=== PATIENT | female | born 1960 | race Caucasian/White ===

== ENCOUNTER 2019-05-14 08:55 | Outpatient (CLI) | payer OTHER ==
[2019-05-14 15:18] LABS: #Basophils 0.1 thou/uL (0.0-0.2); #Eosinphils 0.2 thou/uL (0.0-0.7); #Lymphocytes 2.7 thou/uL (1.20-3.40); #Monocytes 0.6 thou/uL (0.11-0.59); #Neutrophils 3.9 thou/uL (1.40-6.50); %Basophils 0.7 % (0.0-1.0); %Eosinophils 3.1 % (0.0-10.0); %Monocytes 8.2 % (0.0-10.0); Hemoglobin 13.1 g/dL (12.0-16.0); Mean Corpuscular HGB CONC 33.8 g/dL (32.0-36.0); Mean Corpuscular Hemoglobin 29.1 pg (27.0-31.0); Mean Corpuscular Volume 86.2 fL (78.0-98.0); Mean Platelet Volume 9.4 fL (7.4-10.4); Platelet Count 239 thou/uL (130-400); RBC Distribution Width 14.1 % (11.5-14.5); Red Blood Cell (RBC) Count 4.49 mill/uL (4.20-5.40); White Blood Cell (WBC) Count 7.4 thou/uL (4.8-10.8)
[2019-05-14 15:26] LABS: INR-International Normal Ratio 0.9; Prothrombin Time 12.5 SEC (12.0-14.7)
[2019-05-14 15:38] LABS: Bacteria/HPF None Seen HPF (None Seen); Bilirubin Negative (Negative); Blood, Urine Negative (Negative); Clarity Clear (Clear); Glucose, Urine (Dipstick) Normal (Negative); Leukocyte 75 Leu/uL (Negative); Nitrite Negative (Negative); Protein, Urine (Dipstick) Negative (Neg-Trace); RBC/HPF 0-3 HPF (0-3); Squamous Epithelial 0-3 HPF (0-3); Urobilinogen Normal mg/dL (Less than 2); WBC/HPF 0-3 HPF (0-3)
[2019-05-14 15:40] LABS: Anion Gap 14 mmol/L (10-20); BUN (Urea Nitrogen) 21 mg/dL (9.8-20.1); Calc. Creatinine Clearance 0 mL/min (70-130); Calcium 9.6 mg/dL (7.8-10.44); Carbon Dioxide 25 mmol/L (22-29); Chloride 101 mmol/L (98-107); Estimated GFR-MDRD 54; Glucose 76 mg/dL (70-105); Potassium 4.2 mmol/L (3.5-5.1); Sodium 136 mmol/L (136-145)
== END 2019-05-14 08:56 | disposition home or self-care (01) ==
LOC: LABBT 08:55
PROVIDERS: ATTEND Orthopaedic Surgery
DX: Z01.818 Encounter for other preprocedural examination (principal); M17.11 Unilateral primary osteoarthritis, right knee
CPT/HCPCS: 80048; 81001; 85025; 85610; 87081; 93005; 93010

== ENCOUNTER 2019-05-14 12:30 | Inpatient (IN) | payer OTHER ==
[2019-05-14 12:54] VITALS: BMI 47.6
[2019-05-25] MEDS ORDERED: Sodium Chloride 0.9% 100 ML ONE (06:02)
[2019-05-25] MEDS ORDERED: Tranexamic Acid 1,000 MG/10 ML VIAL ONE (06:02)
[2019-05-25] MEDS ORDERED: Vancomycin 1.5 GRAM/300 ML BAG 1.5 GM/300 ML BAG ONE (06:02)
[2019-05-25] MEDS ORDERED: Bupivacaine PF 0.5% 30 ML VIAL ONE (06:38)
[2019-05-25] MEDS ORDERED: HYDROcodone/Acetaminophen 10/325 mg Tablet PO PRN ×4 (07:18→07:21)
[2019-05-25] MEDS ORDERED: Ondansetron PF 4 MG/2 ML Vial IVP PRN ×2 (07:18→07:21)
[2019-05-25] MEDS ORDERED: traMADol HCl 50 MG TAB PO PRN ×2 (07:18→07:21)
[2019-05-25] MEDS ORDERED: Promethazine HCl 25 MG/ML VIAL IM PRN ×3 (07:18→07:33)
[2019-05-25] MEDS ORDERED: Zolpidem Tartrate 5 MG TAB PO PRN ×2 (07:18→07:21)
[2019-05-25] MEDS ORDERED: Fentanyl 100 MCG/2 ML VIAL SLOW IVP PRN ×2 (07:19→07:21)
[2019-05-25] MEDS ORDERED: Acetaminophen 325 MG TAB PO PRN ×2 (07:19→07:21)
[2019-05-25] MEDS ORDERED: diphenhydrAMINE 25 MG CAP PO PRN (07:21)
[2019-05-25] MEDS ORDERED: guaiFENesin ER 600 MG TAB PO PRN (07:23)
[2019-05-25] MEDS ORDERED: Ondansetron HCl/PF 4 MG/2 ML Vial IVP PRN (07:33)
[2019-05-25] MEDS ORDERED: Promethazine HCl 25 MG/ML VIAL SLOW IVP PRN (07:33)
--- NOTE | 2019-05-25 09:39 | OP ---
DATE OF PROCEDURE: 05/25/2019 PREOPERATIVE DIAGNOSIS: Right knee rheumatoid arthritis. POSTOPERATIVE DIAGNOSIS: Right knee rheumatoid arthritis. PROCEDURE PERFORMED: Right total knee replacement using [employer]ent[employer] pinless navigation. FASHION ARTIST: Raffi Palm PA-C BLOOD LOSS: Minimal. COMPLICATIONS: None. ANESTHESIA: The patient did have a general anesthetic as well as a local block to the right leg. IMPLANTS: To the right knee, [place] Triathlon total knee system. The femur was a size 3 cruciate retaining femur. We used a size 2 primary tibial baseplate. We used a 2 x 9 mm CS X3 plastic on the tibia and we used a 28 x 7 X3 patella. DISPOSITION: She went to recovery room in stable condition. INDICATIONS: A 58-year-old female, who is on immunomodulation therapy for rheumatoid arthritis, who at this time wished to have her right knee replaced. PROCEDURE IN DETAIL: After all appropriate consent forms were explained and signed, the patient was taken back to the operating room and at this time was given general anesthetic. Once the level of anesthesia was appropriate, a well-padded tourniquet was placed on the right leg, and the leg was then prepped and draped in standard surgical fashion. The limb was exsanguinated and tourniquet taken up to 300 mmHg. Midline incision was made with a 10 blade down through the skin and subcutaneous tissue. Bovie electrocautery was used to coagulate any brisk venous bleeding. A new blade was used to make a medial parapatellar arthrotomy. Small subperiosteal release was performed medially and excess fat pad was removed. The knee was flexed up to gain access to the femur. The femur was navigated and distal femoral resection was made. Epicondylar access was used to align our sizing jig and this was pinned in place. We sized our femur to be a size 3 cruciate retaining femur. 4:1 cutting block was applied and pinned. Anterior and posterior chamfer cuts were then made. We navigated out our proximal tibia and made our proximal tibial resection. Spreaders were used to remove any posterior osteophytes off the back of the femur as well as remaining meniscal tissue. A long alignment esequiel was then used to achieve correct rotation of our tibial baseplate and a size 2 primary tibial baseplate was chosen. This was pinned in place. We trialed the polyethylene and a 2 x 9 mm CS X3 plastic polyethylene gave us full extension and good stability throughout range of motion. Two towel clips and a saw were used to cut our patella. Three lug nuts were drilled and 28 x 7 X3 patella was trialed which sat nicely in the trochlear groove. We then drilled our femur and punched our tibia. All components were removed. The knee was thoroughly irrigated and dried. Cement was mixed into the cement gun on the back table. Components were then placed. The knee was held out in full extension until the cement had dried. All excess bone cement was removed. Multiple #2 Vicryl stitches as well as a Quill were used to close our extensor mechanism. 0 Quill followed by a running Monoderm was then used to close the skin. Surgicel glue was then used on the skin. Once this had dried, soft tissue dressing was applied to the limb, tourniquet was let down, and the toes pinked up nicely. The patient was then awakened and taken to the recovery room in stable condition. All counts were correct at the end of the case. The patient did receive preoperative IV antibiotics. The patient was infiltrated with Marcaine for postop pain relief. Job ID: [id number]
[2019-05-25] MEDS ORDERED: Ketorolac Tromethamine 30 MG/ML VIAL IVP SCH (12:00)
[2019-05-25] MEDS: Aspirin 81 mg Enteric Coated Tablet PO SCH ×2 (14:07→21:04)
[2019-05-25] MEDS: Ketorolac Tromethamine 30 MG/ML VIAL IVP SCH ×2 (14:12→21:05)
[2019-05-25] MEDS: CEFAZOLIN 2 GM in Premix Bag 1 BAG IVPB SCH ×2 (14:13→21:17)
[2019-05-25] MEDS: Mupirocin 2% Ointment 22 GM Tube TOP SCH ×3 (14:14→21:06)
[2019-05-25] MEDS: Estradiol 1 MG TAB PO SCH (14:15)
[2019-05-25] MEDS: Multivitamin W/ Minerals 1 TAB PO SCH (14:15)
[2019-05-25] MEDS: Losartan/Hydrochlorothiazide 100 mg/25 mg Tablet PO SCH (14:15)
[2019-05-25] MEDS: Ferrous Gluconate 324 MG TAB PO SCH ×2 (14:15→21:04)
[2019-05-25] MEDS: Cyanocobalamin (Vitamin B-12) 1,000 MCG TAB PO SCH (14:16)
[2019-05-25] MEDS: CeleCOXIB 100 MG CAP PO SCH ×2 (14:16→21:04)
[2019-05-25] MEDS ORDERED: Bupivacaine HCl 0.5%/Epinephrine 1:200,000/PF 30 ml Vial ONE (14:34)
[2019-05-25] MEDS ORDERED: ePHEDrine/0.9% NaCl/PF SYRINGE 50 mg/10 ml ONE (14:34)
[2019-05-25] MEDS ORDERED: PROPOFOL 200 MG/20 ML VIAL ONE (14:34)
[2019-05-25] MEDS ORDERED: Ropivacaine 0.2% HCl/PF (40 MG/20 ML VIAL) ONE (14:34)
[2019-05-25] MEDS ORDERED: Dexamethasone 20 MG/5 ML VIAL ONE (14:34)
[2019-05-25] MEDS ORDERED: Lidocaine 1% PF 5 ML VIAL ONE (14:34)
[2019-05-25] MEDS ORDERED: Ketorolac Tromethamine 30 MG/ML VIAL ONE (14:34)
[2019-05-25] MEDS ORDERED: Ondansetron PF 4 MG/2 ML Vial ONE (14:34)
--- NOTE | 2019-05-25 15:03 | CON ---
DATE OF CONSULTATION: PRIMARY CARE PROVIDER: Dr. José Miguel Simon in [place], [place]. CHIEF COMPLAINT: Management of medical comorbidities. HISTORY OF PRESENT ILLNESS: Ms. Galvin is a pleasant 58-year-old lady, who was seen at [facility] on May 25, 2019. She underwent right total knee replacement earlier today. Hospitalist Service was consulted for management of medical comorbidities. She denies any chest pain or shortness of breath. She reports slight lower extremity numbness. She denies any nausea or vomiting. She denies any abdominal pain. REVIEW OF SYSTEMS: All systems were reviewed and found to be negative except for the pertinent positives mentioned above. PAST MEDICAL HISTORY: Obstructive sleep apnea syndrome, on CPAP therapy; arthritis; gastroesophageal reflux disease. PAST SURGICAL HISTORY: Hysterectomy, tubal ligation, meniscal tear repair, laparoscopic cholecystectomy. PSYCHIATRIC HISTORY: Depression and anxiety. FAMILY HISTORY: Coronary artery disease in grandparents. SOCIAL HISTORY: The patient denies tobacco use, alcohol use, or recreational drug use. ALLERGIES: CODEINE AND EPINEPHRINE. CURRENT MEDICATIONS: 1. Bactrim DS one tablet 2 times a day for abdominal wound infection. 2. Abatacept 125 mg subcutaneously every week. 3. Alprazolam 0.25 mg daily as needed. 4. Celebrex 100 mg 2 times a day. 5. Vitamin D3 of 5000 units daily. 6. Vitamin B12 500 mcg daily. 7. Escitalopram 20 mg at bedtime. 8. Estradiol 1 mg daily. 9. Mucinex 600 mg 2 times a day as needed. 10. Olmesartan/hydrochlorothiazide 40/25 mg daily. 11. Omeprazole 10 mg daily. 12. Turmeric 500 mg 2 times a day. PHYSICAL EXAMINATION: GENERAL: On examination, Ms. Galvin is awake and alert, not in acute distress. VITAL SIGNS: Blood pressure is 134/68, pulse 93, respiratory rate 16, and oxygen saturation 95% on room air. She is afebrile. She is morbidly obese with a BMI of 47.7. EYES: No scleral icterus, no conjunctival pallor. ENT: Moist mucosal membranes. No oropharyngeal erythema or exudates. NECK: Supple, nontender. Trachea is midline. RESPIRATORY: Accessory muscles of breathing are not active. Chest wall movements are symmetric bilaterally. LUNGS: Clear to auscultation without wheezes, rhonchi, or crepitations. CARDIOVASCULAR: S1 and S2 are heard, regular. Peripheral pulses palpable. ABDOMEN: Soft, nontender, bowel sounds heard. NEUROLOGIC: Cranial nerves 2 through 12 are intact. MUSCULOSKELETAL: Status post right knee surgery. SKIN: No rashes. LYMPHATIC: No cervical lymphadenopathy. PSYCHIATRIC: Normal mood, normal affect, the patient is oriented to person, place, and time. LABORATORY DATA: Ms. Galvin' labs and investigations were reviewed. On May 14, 2019, she had an unremarkable CBC and unremarkable Chem-7. ASSESSMENT AND PLAN: Ms. Galvin is a pleasant 58-year-old lady, who was seen at [facility] on May 25, 2019. Hospitalist Service has been consulted for management of medical comorbidities. Her problem list includes: 1. Hypertension: Continue olmesartan/hydrochlorothiazide, monitor vital signs and titrate antihypertensives as needed. 2. Obstructive sleep apnea syndrome: The patient to use CPAP while asleep. 3. Gastroesophageal reflux disease: Continue PPI. 4. Depression: Mild, stable, continue escitalopram. 5. Morbid obesity: Management as outpatient. Many thanks for allowing me to participate in your patient's care. Please feel free to contact me with any questions or concerns. LEVEL OF RISK: Moderate. LEVEL OF COMPLEXITY: Moderate. Job ID: [id number]
[2019-05-25] MEDS: Sodium Chloride 0.9% 1,000 ML IV SCH ×2 (17:39→21:15)
[2019-05-25] MEDS: Senokot S 8.6-50 MG TAB PO SCH ×2 (17:40→21:04)
[2019-05-25] MEDS ORDERED: Vancomycin HCl 1.5 GM in Sodium Chloride 0.9% 250 ML 300 ML IVPB SCH (18:00)
[2019-05-25] MEDS ORDERED: Vancomycin 1.5 GRAM/300 ML BAG 1.5 GM in Premix Bag 1 BAG IVPB SCH (18:00)
[2019-05-25] MEDS: Escitalopram Oxalate 20 mg Tablet PO SCH (21:04)
[2019-05-25] MEDS: Sulfameth/Trimethoprim DS 800-160mg TAB PO SCH (21:04)
[2019-05-26 05:10] LABS: Hemoglobin 10.9 g/dL (12.0-16.0); Mean Corpuscular HGB CONC 33.6 g/dL (32.0-36.0); Mean Corpuscular Hemoglobin 29.7 pg (27.0-31.0); Mean Corpuscular Volume 88.4 fL (78.0-98.0); Mean Platelet Volume 9.5 fL (7.4-10.4); Platelet Count 187 thou/uL (130-400); RBC Distribution Width 14.1 % (11.5-14.5); Red Blood Cell (RBC) Count 3.69 mill/uL (4.20-5.40)
[2019-05-26] MEDS: Ketorolac Tromethamine 30 MG/ML VIAL IVP SCH ×3 (05:59→22:00)
[2019-05-26] MEDS: Sulfameth/Trimethoprim DS 800-160mg TAB PO SCH ×2 (08:38→21:55)
[2019-05-26] MEDS: Senokot S 8.6-50 MG TAB PO SCH ×2 (08:38→22:00)
[2019-05-26] MEDS: Aspirin 81 mg Enteric Coated Tablet PO SCH ×2 (08:38→21:54)
[2019-05-26] MEDS: Losartan/Hydrochlorothiazide 100 mg/25 mg Tablet PO SCH (08:39)
[2019-05-26] MEDS: Estradiol 1 MG TAB PO SCH (08:53)
[2019-05-26] MEDS: CeleCOXIB 100 MG CAP PO SCH ×2 (08:59→21:55)
[2019-05-26] MEDS: Cyanocobalamin (Vitamin B-12) 1,000 MCG TAB PO SCH (09:00)
[2019-05-26] MEDS: Multivitamin W/ Minerals 1 TAB PO SCH (09:00)
[2019-05-26] MEDS: Ferrous Gluconate 324 MG TAB PO SCH ×2 (09:00→21:54)
[2019-05-26] MEDS: Mupirocin 2% Ointment 22 GM Tube TOP SCH ×3 (09:00→21:56)
[2019-05-26] MEDS: Ropivacaine HCl/PF 250 ML in Premix Bag 1 BAG NERVE BLCK SCH (09:32)
[2019-05-26] MEDS: traMADol HCl 50 MG TAB PO PRN (14:23)
--- NOTE | 2019-05-26 14:38 | PRG ---
DATE OF SERVICE: 05/26/2019 SUBJECTIVE: Shelly is a 58-year-old female, postop day 1 from a right total knee arthroplasty. Apparently, according to nursing staff, the patient got up this afternoon, went to the bathroom and unfortunately fell landing on her right knee. Pain was tolerable. Her block still working relatively well, but we were called to the bedside for evaluation. OBJECTIVE: VITAL SIGNS: Temperature 97.9, pulse 65, respiratory rate 18, O2 saturation 97% on room air, blood pressure 108/72. GENERAL: She is alert and oriented to person, place, time, situation, responsive, appropriate with examiner. Grossly nonfocal. Her incision after removal of dressing demonstrates some small separation at the superior aspect of the incision. There are two areas of a little bit of concern. I can see some blood clot down in the diastasis of the wound. Little active bleeding is noted at the inferior aspect of the wound, but this essentially is not a completely dehisced wound. Her quad tendon appears to be intact as she can straight leg raise. She is neurovascularly intact with dorsiflexion, inversion, eversion. No erythema. No strike through was noted prior to removal of the dressing. IMPRESSION: 1. A 58-year-old female postop day 1 right total knee arthroplasty. 2. Fall with very small skin dehiscence, superior aspect of wound. PLAN: I will maintain her n.p.o. after midnight. For now, I will place her in a long-leg immobilizer and a compression dressing over the knee and we will put a hold on therapy. We will re-evaluate the patient tomorrow morning. Job ID: [id number]
--- NOTE | 2019-05-26 15:06 | PDOC.HOSPP ---
- Subjective Encounter Date: 05/26/19 Encounter Time: 14:00 Subjective: Pt seen for followup re; hypertension. Fell earlier. - Objective Vital Signs & Weight: Vital Signs (12 hours) Temp Pulse Resp BP Pulse Ox 05/26/19 12:17 97.9 F 65 18 108/73 97 05/26/19 10:20 98.0 F 86 20 155/61 H 93 L 05/26/19 08:00 98.0 F 71 16 145/82 H 95 05/26/19 04:00 98.3 F 69 18 115/69 96 Weight Admit Weight 244 lb Weight 244 lb I&O: 05/25/19 05/26/19 05/27/19 06:59 06:59 06:59 Intake Total 3760 Output Total 1450 Balance 2310 Result Diagrams: 05/26/19 04:30 Additional Labs: Labs and MARs reviewed by [place] Hospitalist ROS - Review of Systems Cardiovascular: denies: chest pain, palpitations, orthopnea, paroxysmal noc. dyspnea, edema, light headedness Gastrointestinal: denies: nausea, vomiting, abdominal pain, diarrhea, constipation, melena, hematochezia - Medication Medications: Active Medications Generic Name Dose Route Start Last Admin Trade Name Freq PRN Reason Stop Dose Admin Aspirin 81 mg 05/25/19 09:00 05/26/19 08:38 Ecotrin PO 81 mg BID VINAY Administration Celecoxib 100 mg 05/25/19 09:00 05/26/19 08:59 Celebrex PO Not Given BID [facility] Cholecalciferol 5,000 units 05/25/19 09:00 05/26/19 08:59 Vitamin D3 PO Not Given DAILY [facility] Cyanocobalamin 500 mcg 05/25/19 09:00 05/26/19 09:00 Vitamin B-12 PO Not Given DAILY [facility] Escitalopram Oxalate 20 mg 05/25/19 21:00 05/25/19 21:04 Lexapro PO 20 mg HS VINYA Administration Estradiol 1 mg 05/25/19 09:00 05/26/19 08:53 Estrace PO 1 mg DAILY [facility] Administration Ferrous Gluconate 324 mg 05/25/19 09:00 05/26/19 09:00 Fergon PO Not Given BID [facility] HCTZ/Losartan Potassium 1 tab 05/25/19 09:00 05/26/19 08:39 Hyzaar 100/25 PO 1 tab DAILY VINAY Administration Ropivacaine 250 ml/ Device 250 mls @ 10 mls/hr 05/25/19 07:18 05/26/19 09:32 NERVE BLCK 05/28/19 07:17 250 mls INF VINAY Administration Sodium Chloride 1,000 mls @ 100 mls/hr 05/25/19 07:30 05/25/19 21:15 Normal Saline 0.9% IV 1,000 mls .Q10H VINAY Administration Iron/Minerals/Multivitamins 1 tab 05/25/19 09:00 05/26/19 09:00 Theragran M PO Not Given DAILY VINAY Ketorolac Tromethamine 15 mg 05/25/19 14:00 05/26/19 14:24 Toradol IVP 05/27/19 14:01 Not Given Q8HR VINAY Mupirocin 0 gm 05/25/19 09:00 05/26/19 09:00 Bactroban 2% Ointment TOP 1 appful TID VINAY Administration Pantoprazole Sodium 40 mg 05/25/19 09:00 05/26/19 08:38 Protonix PO 40 mg DAILY VINAY Administration Senna/Docusate Sodium 2 tab 05/25/19 09:00 05/26/19 08:38 Senokot S PO 2 tab BID VINAY Administration Tramadol HCl 50 mg 05/25/19 07:18 05/26/19 14:23 Ultram PO 50 mg Q6H PRN Administration Mild Pain (1-3) Trimethoprim/Sulfamethoxazole 1 tab 05/25/19 21:00 05/26/19 08:38 Bactrim Ds PO 1 tab BID VINAY Administration - Exam General - other findings: Morbid obesity Eye: anicteric sclera ENT: moist mucosa Neck: supple Heart: RRR Respiratory: CTAB Gastrointestinal: soft, non-tender Extremities: no cyanosis Psychiatric: normal affect, normal behavior Hosp A/P (1) Hypertension Code(s): I10 - ESSENTIAL (PRIMARY) HYPERTENSION Status: Acute (2) MANINDER (obstructive sleep apnea) Code(s): G47.33 - OBSTRUCTIVE SLEEP APNEA (ADULT) (PEDIATRIC) Status: Chronic (3) Depression Code(s): F32.9 - MAJOR DEPRESSIVE DISORDER, SINGLE EPISODE, UNSPECIFIED Status : Chronic (4) GERD (gastroesophageal reflux disease) Code(s): K21.9 - GASTRO-ESOPHAGEAL REFLUX DISEASE WITHOUT ESOPHAGITIS Status: Chronic (5) Morbid obesity with BMI of 45.0-49.9, adult Code(s): E66.01 - MORBID (SEVERE) OBESITY DUE TO EXCESS CALORIES; Z68.42 - BODY MASS INDEX (BMI) 45.0-49.9, ADULT Status: Chronic (6) Fall Code(s): W19.XXXA - UNSPECIFIED FALL, INITIAL ENCOUNTER Status: Acute - Plan HTN controlled. Pt using CPAP while asleep. Depression mild, stable.
[2019-05-26] MEDS: Escitalopram Oxalate 20 mg Tablet PO SCH (21:55)
[2019-05-26] MEDS: ALPRAZolam 0.25 MG TAB PO PRN (21:55)
[2019-05-27 04:41] LABS: Hemoglobin 10.9 g/dL (12.0-16.0); Mean Corpuscular HGB CONC 34.1 g/dL (32.0-36.0); Mean Corpuscular Hemoglobin 29.9 pg (27.0-31.0); Mean Corpuscular Volume 87.5 fL (78.0-98.0); Mean Platelet Volume 9.6 fL (7.4-10.4); Platelet Count 180 thou/uL (130-400); RBC Distribution Width 14.3 % (11.5-14.5); Red Blood Cell (RBC) Count 3.64 mill/uL (4.20-5.40)
[2019-05-27] MEDS: Ketorolac Tromethamine 30 MG/ML VIAL IVP SCH ×2 (06:06→11:50)
[2019-05-27] MEDS: Sodium Chloride 0.9% 1,000 ML IV SCH ×3 (07:29→16:41)
[2019-05-27] MEDS: Aspirin 81 mg Enteric Coated Tablet PO SCH ×2 (08:56→21:03)
[2019-05-27] MEDS: Cyanocobalamin (Vitamin B-12) 1,000 MCG TAB PO SCH (08:56)
[2019-05-27] MEDS: CeleCOXIB 100 MG CAP PO SCH ×2 (08:56→21:03)
[2019-05-27] MEDS: Ferrous Gluconate 324 MG TAB PO SCH ×2 (08:56→21:03)
[2019-05-27] MEDS: Senokot S 8.6-50 MG TAB PO SCH ×2 (08:57→21:04)
[2019-05-27] MEDS: Estradiol 1 MG TAB PO SCH (08:57)
[2019-05-27] MEDS: Sulfameth/Trimethoprim DS 800-160mg TAB PO SCH ×2 (08:57→21:04)
[2019-05-27] MEDS: Multivitamin W/ Minerals 1 TAB PO SCH (08:57)
[2019-05-27] MEDS: Losartan/Hydrochlorothiazide 100 mg/25 mg Tablet PO SCH (08:57)
[2019-05-27] MEDS: Mupirocin 2% Ointment 22 GM Tube TOP SCH ×3 (08:58→21:04)
[2019-05-27] MEDS ORDERED: CEFAZOLIN 1 GM in Sodium Chloride 0.9% 100 ML IVPB SCH (09:00)
[2019-05-27] MEDS: ALPRAZolam 0.25 MG TAB PO PRN (09:09)
[2019-05-27] MEDS: ceFAZolin 1 GM/D5W 1 GM in Premix Bag 1 BAG IVPB SCH ×2 (09:42→16:56)
[2019-05-27] MEDS: Ropivacaine HCl/PF 250 ML in Premix Bag 1 BAG NERVE BLCK SCH (11:46)
[2019-05-27] MEDS ORDERED: ceFAZolin 1 GM/D5W 1 GM in Premix Bag 1 BAG IVPB SCH (17:00)
[2019-05-27] MEDS: Escitalopram Oxalate 20 mg Tablet PO SCH (21:03)
[2019-05-28] MEDS: ceFAZolin 1 GM/D5W 1 GM in Premix Bag 1 BAG IVPB SCH ×3 (03:17→17:00)
[2019-05-28] MEDS: Sodium Chloride 0.9% 1,000 ML IV SCH ×3 (05:07→20:08)
[2019-05-28 05:11] LABS: Hemoglobin 11.2 g/dL (12.0-16.0); Mean Corpuscular HGB CONC 33.5 g/dL (32.0-36.0); Mean Corpuscular Hemoglobin 29.1 pg (27.0-31.0); Mean Corpuscular Volume 86.8 fL (78.0-98.0); Mean Platelet Volume 8.9 fL (7.4-10.4); Platelet Count 195 thou/uL (130-400); RBC Distribution Width 14.3 % (11.5-14.5); Red Blood Cell (RBC) Count 3.86 mill/uL (4.20-5.40); White Blood Cell (WBC) Count 8.9 thou/uL (4.8-10.8)
[2019-05-28] MEDS: Sulfameth/Trimethoprim DS 800-160mg TAB PO SCH ×2 (08:35→20:09)
[2019-05-28] MEDS: Losartan/Hydrochlorothiazide 100 mg/25 mg Tablet PO SCH (08:35)
[2019-05-28] MEDS: Estradiol 1 MG TAB PO SCH (08:35)
[2019-05-28] MEDS: Ferrous Gluconate 324 MG TAB PO SCH ×2 (08:35→20:09)
[2019-05-28] MEDS: Multivitamin W/ Minerals 1 TAB PO SCH (08:36)
[2019-05-28] MEDS: CeleCOXIB 100 MG CAP PO SCH ×2 (08:36→20:09)
[2019-05-28] MEDS: Aspirin 81 mg Enteric Coated Tablet PO SCH ×2 (08:36→20:09)
[2019-05-28] MEDS: Cyanocobalamin (Vitamin B-12) 1,000 MCG TAB PO SCH (08:36)
[2019-05-28] MEDS: Senokot S 8.6-50 MG TAB PO SCH ×2 (08:37→20:07)
[2019-05-28] MEDS: Mupirocin 2% Ointment 22 GM Tube TOP SCH ×3 (08:38→20:10)
[2019-05-28] MEDS: ALPRAZolam 0.25 MG TAB PO PRN (08:55)
[2019-05-28] MEDS: traMADol HCl 50 MG TAB PO PRN (18:31)
[2019-05-28] MEDS: Escitalopram Oxalate 20 mg Tablet PO SCH (20:09)
[2019-05-29] MEDS: ceFAZolin 1 GM/D5W 1 GM in Premix Bag 1 BAG IVPB SCH (03:31)
[2019-05-29 05:28] LABS: Hemoglobin 11.5 g/dL (12.0-16.0); Mean Corpuscular HGB CONC 34.4 g/dL (32.0-36.0); Mean Corpuscular Hemoglobin 30.2 pg (27.0-31.0); Mean Corpuscular Volume 87.8 fL (78.0-98.0); Mean Platelet Volume 9.2 fL (7.4-10.4); Platelet Count 264 thou/uL (130-400); RBC Distribution Width 14.1 % (11.5-14.5); Red Blood Cell (RBC) Count 3.79 mill/uL (4.20-5.40); White Blood Cell (WBC) Count 9.6 thou/uL (4.8-10.8)
[2019-05-29] MEDS: traMADol HCl 50 MG TAB PO PRN (06:50)
[2019-05-29] MEDS: Senokot S 8.6-50 MG TAB PO SCH ×2 (07:37→07:43)
[2019-05-29] MEDS: Estradiol 1 MG TAB PO SCH (07:38)
[2019-05-29] MEDS: Losartan/Hydrochlorothiazide 100 mg/25 mg Tablet PO SCH (07:38)
[2019-05-29] MEDS: Ferrous Gluconate 324 MG TAB PO SCH (07:38)
[2019-05-29] MEDS: CeleCOXIB 100 MG CAP PO SCH (07:38)
[2019-05-29] MEDS: Multivitamin W/ Minerals 1 TAB PO SCH (07:38)
[2019-05-29] MEDS: Aspirin 81 mg Enteric Coated Tablet PO SCH (07:38)
[2019-05-29] MEDS: Cyanocobalamin (Vitamin B-12) 1,000 MCG TAB PO SCH (07:39)
[2019-05-29] MEDS: Sulfameth/Trimethoprim DS 800-160mg TAB PO SCH (07:39)
[2019-05-29 07:46] VITALS: BP 146/76; TEMP 98.1
== END 2019-05-29 09:58 | disposition home or self-care (01) | DRG 470 ==
LOC: SJJU 05-25 05:47 → EDSTATUS 05-25 12:30
PROVIDERS: ADMIT Orthopaedic Surgery; ATTEND Orthopaedic Surgery
PROC: 0SRC0J9 Replacement of Right Knee Joint with Synthetic Substitute, Cemented, Open Approach (ICD-10-PCS; principal; 2019-05-25)
PROC: 5A09357 Assistance with Respiratory Ventilation, Less than 24 Consecutive Hours, Continuous Positive Airway Pressure (ICD-10-PCS; 2019-05-28)
DX: M06.861 Other specified rheumatoid arthritis, right knee (principal); Z68.42 Body mass index [BMI] 45.0-49.9, adult; T81.31XA Disruption of external operation (surgical) wound, not elsewhere classified, initial encounter; G47.33 Obstructive sleep apnea (adult) (pediatric); K21.9 Gastro-esophageal reflux disease without esophagitis; F41.9 Anxiety disorder, unspecified; F32.9 Major depressive disorder, single episode, unspecified; E66.01 Morbid (severe) obesity due to excess calories; Y83.8 Other surgical procedures as the cause of abnormal reaction of the patient, or of later complication, without mention of misadventure at the time of the procedure; Z90.49 Acquired absence of other specified parts of digestive tract; Z90.710 Acquired absence of both cervix and uterus; Z88.5 Allergy status to narcotic agent; Z88.8 Allergy status to other drugs, medicaments and biological substances; Z79.899 Other long term (current) drug therapy
CPT/HCPCS: 36415; 85027; C1713; C1776; J0670; J0690; J1100; J1885; J2001; J2405; J2704; J2795; J3490; S0020

== ENCOUNTER 2020-03-16 06:46 | Outpatient (CLI) | payer OTHER ==
[2020-03-16 14:03] LABS: #Eosinphils 0.2 10x3/uL (0.0-0.5); #Monocytes 0.6 10x3/uL (0.0-1.1); #Neutrophils 1.9 10x3/uL (1.5-8.4); %Basophils 0.7 % (0.0-2.0); %Eosinophils 3.1 % (0.0-6.0); %Lymphocytes 49.5 % (18.0-47.0); %Monocytes 11.2 % (0.0-10.0); %Neutrophils 35.3 % (40.0-75.0); Hemoglobin 13.5 g/dL (12.0-16.0); Mean Corpuscular HGB CONC 33.5 G/DL (32.0-36.0); Mean Corpuscular Volume 86.5 fl (80.0-100.0); Mean Platelet Volume 11.2 fl (7.4-10.4); Platelet Count 194 10x3/uL (130-400); RBC Distribution Width 17.1 % (11.5-14.5); Red Blood Cell (RBC) Count 4.66 10x6/uL (3.90-5.20); White Blood Cell (WBC) Count 5.4 10x3/uL (4.5-11.0)
[2020-03-16 14:28] LABS: Prothrombin Time 10.8 sec (9.5-12.1)
[2020-03-16 14:33] LABS: Anion Gap 14 mmol/L (10-20); BUN (Urea Nitrogen) 20 mg/dL (9.8-20.1); Calc. Creatinine Clearance 0 mL/min (70-130); Calcium 9.4 mg/dL (7.8-10.44); Carbon Dioxide 27 mmol/L (22-29); Chloride 101 mmol/L (98-107); Estimated GFR-MDRD 53; Glucose 121 mg/dL (70-105); Potassium 4.4 mmol/L (3.5-5.1); Sodium 138 mmol/L (136-145)
[2020-03-16 15:04] LABS: Bilirubin Neg (Negative); Blood, Urine Negative (Negative); Clarity Clear (Clear); Glucose, Urine (Dipstick) Normal (Negative); Ketone, Urine Negative (Negative); Leukocyte 25 (Negative); Nitrite Negative (Negative); Protein, Urine (Dipstick) Negative (Neg-Trace)
[2020-03-16 15:26] LABS: Bacteria/HPF Rare-Few HPF (None Seen); RBC/HPF None Seen HPF (0-3); Squamous Epithelial 0-3 HPF (0-3); WBC/HPF 0-3 HPF (0-3)
[2020-03-17 14:43] LABS: SARS-CoV-2 MS2 Positive; SARS-CoV-2 N Gene Negative; SARS-CoV-2 S Gene Negative; SARS-CoV-2 by NAA Not Detected (NotDetected); SARS-CoV-2 orf1ab Negative
== END 2020-03-16 06:47 | disposition home or self-care (01) ==
LOC: LABBT 06:46
PROVIDERS: ATTEND Orthopaedic Surgery
DX: Z01.818 Encounter for other preprocedural examination (principal); M17.12 Unilateral primary osteoarthritis, left knee; Z20.828 Contact with and (suspected) exposure to other viral communicable diseases
CPT/HCPCS: 80048; 81001; 85025; 85610; 87081; 87635; 93005; 93010; U0003

== ENCOUNTER 2020-03-16 13:00 | Inpatient (IN) | payer OTHER ==
[2020-03-21] MEDS ORDERED: Tranexamic Acid 1,000 MG/10 ML VIAL ONE ×2 (06:15→09:42)
[2020-03-21] MEDS ORDERED: Vancomycin 1.5 GRAM/300 ML BAG ONE (06:15)
[2020-03-21] MEDS ORDERED: Sodium Chloride 0.9% 100 ML ONE (06:15)
[2020-03-21] MEDS ORDERED: Promethazine HCl 25 MG/ML VIAL SLOW IVP PRN (06:35)
[2020-03-21] MEDS ORDERED: Promethazine HCl 25 MG/ML VIAL IM PRN ×3 (06:35→07:45)
[2020-03-21] MEDS ORDERED: Ondansetron HCl/PF 4 MG/2 ML Vial IVP PRN (06:35)
[2020-03-21] MEDS ORDERED: Fentanyl 100 MCG/2 ML VIAL ONE ×2 (06:36→10:15)
[2020-03-21] MEDS ORDERED: Midazolam HCl 2 mg/2 ml Vial ONE (06:36)
[2020-03-21] MEDS ORDERED: Bupivacaine PF 0.5% 30 ML VIAL ONE (06:56)
[2020-03-21] MEDS ORDERED: traMADol HCl 50 MG TAB PO PRN ×2 (07:22→07:45)
[2020-03-21] MEDS ORDERED: Fentanyl 100 MCG/2 ML VIAL SLOW IVP PRN ×2 (07:22→07:44)
[2020-03-21] MEDS ORDERED: Ondansetron PF 4 MG/2 ML Vial IVP PRN ×2 (07:22→07:45)
[2020-03-21] MEDS ORDERED: diphenhydrAMINE 25 MG CAP PO PRN (07:22)
[2020-03-21] MEDS ORDERED: Zolpidem Tartrate 5 MG TAB PO PRN ×2 (07:22→07:45)
[2020-03-21] MEDS ORDERED: ALPRAZolam 0.25 MG TAB PO PRN (07:24)
[2020-03-21] MEDS ORDERED: Tranexamic Acid 1,000 MG in Sodium Chloride 0.9% 100 ML IVPB SCH (07:30)
[2020-03-21] MEDS ORDERED: HYDROcodone/Acetaminophen 10/325 mg Tablet PO PRN ×2 (07:45)
[2020-03-21] MEDS ORDERED: Ropivacaine HCl/PF 250 ML in Premix Bag 1 BAG NERVE BLCK SCH (07:45)
[2020-03-21] MEDS ORDERED: OMEPRAZOLE 10 MG PO SCH (09:00)
[2020-03-21] MEDS ORDERED: Senokot S 8.6-50 MG TAB PO SCH (09:00)
[2020-03-21] MEDS ORDERED: Non-Formulary Item 1 EACH (Cyanocobalamin (Vitamin B-12) [Vitamin B-12] 500 MCG Tablet) PO SCH (09:00)
[2020-03-21] MEDS ORDERED: Escitalopram Oxalate 20 mg Tablet PO SCH (09:00)
[2020-03-21] MEDS ORDERED: Aspirin 81 mg Enteric Coated Tablet PO SCH (09:00)
[2020-03-21] MEDS ORDERED: Dexamethasone 20 MG/5 ML VIAL ONE (12:05)
[2020-03-21] MEDS ORDERED: Ketorolac Tromethamine 30 MG/ML VIAL ONE (12:05)
[2020-03-21] MEDS ORDERED: Ondansetron PF 4 MG/2 ML Vial ONE (12:05)
[2020-03-21] MEDS ORDERED: PROPOFOL 200 MG/20 ML VIAL ONE (12:05)
[2020-03-21] MEDS ORDERED: Bupivacaine HCl 0.5%/Epinephrine 1:200,000/PF 30 ml Vial ONE (12:05)
[2020-03-21] MEDS ORDERED: EPHEDRINE 25 MG/5 ML SYRINGE ONE (12:05)
[2020-03-21] MEDS ORDERED: Ropivacaine 0.2% HCl/PF (40 MG/20 ML VIAL) ONE (12:05)
[2020-03-21] MEDS: Aspirin 81 mg Enteric Coated Tablet PO SCH ×2 (12:07→20:01)
[2020-03-21] MEDS: Cyanocobalamin (Vitamin B-12) 1,000 MCG TAB PO SCH (12:07)
[2020-03-21] MEDS: Ferrous Gluconate 324 MG TAB PO SCH ×2 (12:08→20:01)
[2020-03-21] MEDS: Losartan/Hydrochlorothiazide 100 mg/25 mg Tablet PO SCH (12:08)
[2020-03-21] MEDS: Multivitamin W/ Minerals 1 TAB PO SCH (12:08)
[2020-03-21] MEDS: Escitalopram Oxalate 20 mg Tablet PO SCH (12:08)
[2020-03-21] MEDS: Rosuvastatin 10 MG TAB PO SCH (12:09)
[2020-03-21] MEDS: Ketorolac Tromethamine 30 MG/ML VIAL IVP SCH ×3 (12:12→23:20)
[2020-03-21 13:38] VITALS: BMI 50.3
[2020-03-21] MEDS ORDERED: Ketorolac Tromethamine 30 MG/ML VIAL IVP SCH (14:00)
--- NOTE | 2020-03-21 17:36 | PDOC.HHP ---
Hospitalist HPI - History of Present Illness Consult for medical management History of Present Illness: CONSULTATION NOTE CONSULT PLACED BY : ORTHOPEDICS, DR. NICOLE Ms. Galvin is a 5-year-old female with a past medical history of hypertension, hyperlipidemia, obstructive sleep apnea, anxiety depression, GERD, osteoarthritis, rheumatoid arthritis who underwent a left total knee replacement on 03/21/[address] Nicole. Patient tolerated procedure well and is resting in bed with no complaints. Hospitalist service consulted for medical management of patient's chronic conditions. Patient denies any current complaints. Denies chest pain, shortness of breath. Denies any new numbness, weakness, or paresthesias. Has not moved bowels yet, but is passing flatus. Has been up with physical therapy. Hospitalist ROS - Review of Systems Constitutional: denies: fever, chills, sweats, weakness, malaise, other Eyes: denies: pain, vision change, conjunctivae inflammation, eyelid inflammation, redness, other ENT: denies: ear pain, ear discharge, nose pain, nose discharge, nose congestion, mouth pain, mouth swelling, throat pain, throat swelling, other Respiratory: denies: cough, dry, shortness of breath, hemoptysis, SOB with excertion, pleuritic pain, sputum, wheezing, other Cardiovascular: denies: chest pain, palpitations, orthopnea, paroxysmal noc. dyspnea, edema, light headedness, other Gastrointestinal: denies: nausea, vomiting, abdominal pain, diarrhea, constipation, melena, hematochezia, other Genitourinary: denies: dysuria, frequency, incontinence, hematuria, retention, other Musculoskeletal: denies: neck pain, shoulder pain, arm pain, back pain, hand pain, leg pain, foot pain, other Skin: denies: rash, lesions, norma, bruising, other Neurological: denies: weakness, numbness, incoordination, change in speech, confusion, seizures, other - Medication Medications: New medications include Aspirin Toclizumab Lexapro Alprazolam Rosuvastatin Olmesartan hydrochlorothiazide Omeprazole Hospitalist History - Past Medical History Other Medical History: Past medical history includes Obstructive sleep apnea Osteoarthritis Rheumatoid arthritis GERD Anxiety depression Hypertension Hyperlipidemia - Past Surgical History Other Surgical History: Past surgical history includes Lap olivia Right meniscus repair Total hysterectomy Tubal ligation Right total knee replacement Left total knee replacement - Family History Other Family History: Family history of heart disease in grandparents. - Social History Smoking Status: Never smoker Alcohol: reports: None Drugs: reports: none Living Situation: With Family Activity level: independent ambulation - Exam General Appearance: NAD, awake alert Eye: anicteric sclera ENT: normocephalic atraumatic, no oropharyngeal lesions, moist mucosa Neck: supple, symmetric, no JVD, no thyromegaly, no lymphadenopathy, no carotid bruit Heart: RRR, no murmur, no gallops, no rubs, normal peripheral pulses Respiratory: CTAB, no wheezes, no rales, no ronchi, normal chest expansion, no tachypnea, normal percussion Gastrointestinal: soft, non-tender, non-distended, normal bowel sounds, no palpable masses, no hepatomegaly, no splenomegaly, no bruit Extremities: no cyanosis, no clubbing, no edema Extremities - other findings: Left lower extremity with dressing in place, good pulses, good strength Skin: normal turgor, no lesions, no rashes Neurological: cranial nerve grossly intact, normal sensation to touch, no weakness, no focal deficits, no new deficit Musculoskeletal: normal tone, normal strength, no muscle wasting Psychiatric: normal affect, normal behavior, A&O x 3 Hospitalist H&P A/P - Plan Plan: Status post left total knee replacement 5-year-old female status post left total knee replacement with Dr. Nicole on 03/21/2020. Patient tolerated procedure well. Has already been up with physical therapy. Pain well controlled. No numbness, weakness, paresthesias. Incentive spirometry encouraged. No bowel movement, patient is passing flatus. We will continue patient on bowel regimen and monitor for ileus. Plan Postop course per surgery Incentive spirometry encouraged Colace Obstructive sleep apnea History of MANINDER on home CPAP. No respiratory complaints at this time. Plan Continue home CPAP Monitor respiratory status Incentive spirometry encouraged Hypertension History of hypertension on home olmesartan/hydrochlorothiazide. We will continue home medication and monitor blood pressures. Plan Continue olmesartan/hydrochlorothiazide Hyperlipidemia History of hyperlipidemia. We will continue home rosuvastatin. GERD History of GERD we will substitute home omeprazole with pantoprazole. Anxiety/depression History of anxiety depression on Lexapro and alprazolam. Patient ports her mood is currently stable. Plan Continue Lexapro Continue alprazolam Rheumatoid arthritis History of RA on tocilizumab infusions. No current complaints. Continue outpatient management. DVT prophylaxis per surgical team Full code
[2020-03-21] MEDS: traMADol HCl 50 MG TAB PO PRN (18:41)
[2020-03-21] MEDS: Sodium Chloride 0.9% 1,000 ML IV SCH (18:53)
[2020-03-21] MEDS: CEFAZOLIN 2 GM in Premix Bag 1 BAG IVPB SCH ×2 (18:54→23:21)
[2020-03-21] MEDS: Senokot S 8.6-50 MG TAB PO SCH ×2 (20:01→20:06)
[2020-03-21] MEDS: Loratadine 10 MG TAB PO SCH (20:02)
[2020-03-21] MEDS ORDERED: Non-Formulary Item 1 EACH (Fexofenadine Hcl [Allegra Allergy] 180 MG Tablet) PO SCH (21:00)
[2020-03-21] MEDS: ALPRAZolam 0.25 MG TAB PO PRN (21:49)
--- NOTE | 2020-03-21 22:17 | OP ---
DATE OF PROCEDURE: 03/21/2020 PREOPERATIVE DIAGNOSIS: Left knee osteoarthrosis. POSTOPERATIVE DIAGNOSIS: Left knee osteoarthrosis. PROCEDURE PERFORMED: Left total knee replacement using [employer] pinless navigation. INVENTORY SPECIALIST: Robby Aldrich PA-C. The delivery assistant surgeon was present throughout the entirety of the procedure to include the approach, the placement of the prosthetic device as well as a full final closure of the knee joint. She did go to recovery room in stable condition. ANESTHESIA: She had a general anesthetic as well as a preoperative block. COMPLICATIONS: There were no complications. IMPLANTS: Implants to the left knee include a [employer] triathlon total knee system. The femur was a size 3 primary cruciate retaining femur. We used a size 2 primary tibial base plate. We used a 2 x 9 mm X3 tibial poly and we used a symmetric 27 x 8 X3 patella. She did go to recovery room in stable condition. INDICATIONS: This is a 59-year-old female, who comes in for left knee replacement. The patient previously this year had a right knee replacement and has done very well from this. Again, she has failed nonoperative treatment and wished to have the left knee replaced. PROCEDURE IN DETAIL: After all appropriate consent forms were explained and signed, the patient was taken back to the operating room and at this time was given general anesthetic. Once the level of anesthesia was appropriate, a well-padded tourniquet was placed on the left leg, and the leg was then prepped and draped in standard surgical fashion. The limb was exsanguinated and tourniquet taken up to 300 mmHg. Midline incision was made with a 10 blade down through the skin and subcutaneous tissue. Bovie electrocautery was used to coagulate any brisk venous bleeding. A new blade was used to make a medial parapatellar arthrotomy. Small subperiosteal release was performed medially and excess fat pad was removed. The knee was flexed up to gain access to the femur. The femur was navigated and distal femoral resection was made. Epicondylar access was used to align our sizing jig and this was pinned in place. We sized our femur to be a size 3 primary cruciate retaining femur. 4:1 cutting block was applied and pinned. Anterior and posterior chamfer cuts were then made. We navigated out our proximal tibia and made our proximal tibial resection. Spreaders were used to remove any posterior osteophytes off the back of the femur as well as remaining meniscal tissue. A long alignment esequiel was then used to achieve correct rotation of our tibial baseplate and a size 2 primary tibial base plate was chosen. This was pinned in place. We trialed the polyethylene and a 2 x 9 mm X3 tibial polyethylene gave us full extension and good stability throughout range of motion. Two towel clips and a saw were used to cut our patella. Three lug nuts were drilled and symmetric 27 x 8 X3 patella was trialed which sat nicely in the trochlear groove. We then drilled our femur and punched our tibia. All components were removed. The knee was thoroughly irrigated and dried. Cement was mixed into the cement gun on the back table. Components were then placed. The knee was held out in full extension until the cement had dried. All excess bone cement was removed. Multiple #2 Vicryl stitches as well as a Quill were used to close our extensor mechanism. 0 Quill followed by a running Monoderm was then used to close the skin. Surgicel glue was then used on the skin. Once this had dried, soft tissue dressing was applied to the limb, tourniquet was let down, and the toes pinked up nicely. The patient was then awakened and taken to the recovery room in stable condition. All counts were correct at the end of the case. The patient did receive preoperative IV antibiotics. The patient was injected with Marcaine for postoperative pain relief. Job ID: [id number]
[2020-03-22] MEDS: Sodium Chloride 0.9% 1,000 ML IV SCH ×2 (03:17→14:29)
[2020-03-22] MEDS: Acetaminophen 325 MG TAB PO PRN ×2 (03:25→22:31)
[2020-03-22] MEDS: Ketorolac Tromethamine 30 MG/ML VIAL IVP SCH ×3 (05:02→18:11)
[2020-03-22 05:31] LABS: Hemoglobin 11.7 g/dL (12.0-16.0); Mean Corpuscular HGB CONC 34.1 g/dL (32.0-36.0); Mean Corpuscular Hemoglobin 30.6 pg (27.0-31.0); Mean Corpuscular Volume 89.8 fL (78.0-98.0); Mean Platelet Volume 9.4 fL (7.4-10.4); Platelet Count 159 thou/uL (130-400); RBC Distribution Width 16.5 % (11.5-14.5); Red Blood Cell (RBC) Count 3.84 mill/uL (4.20-5.40); White Blood Cell (WBC) Count 10.7 thou/uL (4.8-10.8)
[2020-03-22] MEDS: Cyanocobalamin (Vitamin B-12) 1,000 MCG TAB PO SCH (07:57)
[2020-03-22] MEDS: Losartan/Hydrochlorothiazide 100 mg/25 mg Tablet PO SCH (07:59)
[2020-03-22] MEDS: Multivitamin W/ Minerals 1 TAB PO SCH (07:59)
[2020-03-22] MEDS: Aspirin 81 mg Enteric Coated Tablet PO SCH ×2 (07:59→20:48)
[2020-03-22] MEDS: Rosuvastatin 10 MG TAB PO SCH (07:59)
[2020-03-22] MEDS: Ferrous Gluconate 324 MG TAB PO SCH ×2 (07:59→20:49)
[2020-03-22] MEDS: Escitalopram Oxalate 20 mg Tablet PO SCH (08:00)
[2020-03-22] MEDS: Senokot S 8.6-50 MG TAB PO SCH ×2 (08:00→20:53)
[2020-03-22] MEDS: traMADol HCl 50 MG TAB PO PRN ×2 (10:31→18:10)
--- NOTE | 2020-03-22 16:28 | PDOC.HOSPP ---
- Subjective Encounter Date: 03/22/20 Encounter Time: 12:30 Subjective: Patient seen and examined for medical management. Denies any chest pain or shortness of breath. No fever or chills. No overnight events. - Objective Vital Signs & Weight: Vital Signs (12 hours) Temp Pulse Resp BP Pulse Ox 03/22/20 15:22 98.8 F 70 16 113/58 L 92 L 03/22/20 10:43 98.1 F 69 16 108/86 93 L 03/22/20 08:00 94 L 03/22/20 07:43 98.3 F 74 16 115/61 94 L Weight Admit Weight 257 lb 15.04 oz Weight 257 lb 15.053 oz I&O: 03/21/20 03/22/20 03/23/20 06:59 06:59 06:59 Output Total 550 Balance -550 Result Diagrams: 03/22/20 04:57 Additional Labs: Laboratory Tests 03/16/20 13:10 BUN 20 Creatinine 1.06 Hospitalist ROS - Review of Systems Respiratory: denies: cough, dry, shortness of breath, hemoptysis, SOB with excertion, pleuritic pain, sputum, wheezing, other Cardiovascular: denies: chest pain, palpitations, orthopnea, paroxysmal noc. dyspnea, edema, light headedness, other - Medication Medications: Active Medications Generic Name Dose Route Start Last Admin Trade Name Freq PRN Reason Stop Dose Admin Acetaminophen 650 mg 03/21/20 07:22 03/22/20 03:25 Acetaminophen 325 Mg Tab PO 650 mg Q4H PRN Administration Headache/Fever or Pain Alprazolam 0.25 mg 03/21/20 07:29 03/21/20 21:49 Alprazolam 0.25 Mg Tab PO 0.25 mg DAILY PRN Administration Anxiety Aspirin 81 mg 03/21/20 09:00 03/22/20 07:59 Aspirin 81 Mg Enteric Coated Tablet PO 81 mg BID VINAY Administration Cyanocobalamin 500 mcg 03/21/20 09:00 03/22/20 07:57 Cyanocobalamin (Vitamin B-12) 1,000 Mcg Tab PO 500 mcg DAILY VINAY Administration Escitalopram Oxalate 20 mg 03/21/20 09:00 03/22/20 08:00 Escitalopram Oxalate 20 Mg Tablet PO 20 mg DAILY VINAY Administration Ferrous Gluconate 324 mg 03/21/20 09:00 03/22/20 07:59 Ferrous Gluconate 324 Mg Tab PO 324 mg BID VINAY Administration HCTZ/Losartan Potassium 1 tab 03/21/20 09:00 03/22/20 07:59 Losartan/Hydrochlorothiazide 100 Mg/25 Mg Tablet PO 1 tab DAILY VINAY Administration Sodium Chloride 1,000 mls @ 100 mls/hr 03/21/20 07:30 03/22/20 14:29 Normal Saline 0.9% IV Not Given .Q10H VINAY Ropivacaine 250 ml/ Device 250 mls @ 10 mls/hr 03/21/20 07:45 03/22/20 10:27 NERVE BLCK 03/24/20 07:44 250 mls INF VINAY Administration Iron/Minerals/Multivitamins 1 tab 03/21/20 09:00 03/22/20 07:59 Multivitamin W/ Minerals 1 Tab PO 1 tab DAILY VINAY Administration Ketorolac Tromethamine 30 mg 03/21/20 12:00 03/22/20 11:55 Ketorolac Tromethamine 30 Mg/Ml Vial IVP 03/23/20 06:01 30 mg Q6HR VINAY Administration Loratadine 10 mg 03/21/20 21:00 03/21/20 20:02 Loratadine 10 Mg Tab PO Not Given HS [facility] Pantoprazole Sodium 40 mg 03/21/20 09:00 03/22/20 07:59 Pantoprazole 40 Mg Tab PO 40 mg DAILY VINAY Administration Rosuvastatin Calcium 10 mg 03/21/20 09:00 03/22/20 07:59 Rosuvastatin 10 Mg Tab PO 10 mg DAILY VINAY Administration Senna/Docusate Sodium 1 tab 03/21/20 21:00 03/22/20 08:00 Senokot S 8.6-50 Mg Tab PO Not Given BID VINAY Tramadol HCl 100 mg 03/21/20 07:45 03/22/20 10:31 Tramadol Hcl 50 Mg Tab PO 100 mg Q6H PRN Administration Moderate Pain 4-6 - Exam General Appearance: NAD Heart: RRR, no gallops Respiratory: no wheezes, no ronchi Gastrointestinal: soft, non-tender, normal bowel sounds Extremities: no cyanosis Neurological: no new deficit Hosp A/P - Plan DVT proph w/SCDs Hypertension Obstructive sleep apnea on CPAP Anxiety Vitamin B12 deficiency GERD Hyperlipidemia History of rheumatoid arthritis CKD stage III Seasonal allergies Plan: Continue home CPAP. Continue losartan, hydrochlorothiazide with statins. Continue PPIs. Continue Lexapro. Continue Senokot-S add MiraLAX as needed continue supportive care. Continue physical therapy.
[2020-03-22] MEDS ORDERED: Polyethylene Glycol 3350 17 GM Packet PO PRN (16:29)
[2020-03-22] MEDS: Loratadine 10 MG TAB PO SCH (20:52)
[2020-03-22] MEDS: ALPRAZolam 0.25 MG TAB PO PRN (20:52)
[2020-03-23] MEDS: Sodium Chloride 0.9% 1,000 ML IV SCH ×2 (00:25→08:45)
[2020-03-23] MEDS: Ketorolac Tromethamine 30 MG/ML VIAL IVP SCH ×2 (00:25→06:31)
[2020-03-23 06:05] LABS: Hemoglobin 11.4 g/dL (12.0-16.0); Mean Corpuscular HGB CONC 33.2 g/dL (32.0-36.0); Mean Corpuscular Hemoglobin 30.4 pg (27.0-31.0); Mean Corpuscular Volume 91.5 fL (78.0-98.0); Mean Platelet Volume 9.5 fL (7.4-10.4); Platelet Count 137 thou/uL (130-400); RBC Distribution Width 16.6 % (11.5-14.5); Red Blood Cell (RBC) Count 3.75 mill/uL (4.20-5.40); White Blood Cell (WBC) Count 6.5 thou/uL (4.8-10.8)
[2020-03-23] MEDS: Aspirin 81 mg Enteric Coated Tablet PO SCH (08:32)
[2020-03-23] MEDS: Ferrous Gluconate 324 MG TAB PO SCH (08:32)
[2020-03-23] MEDS: Cyanocobalamin (Vitamin B-12) 1,000 MCG TAB PO SCH (08:32)
[2020-03-23] MEDS: Multivitamin W/ Minerals 1 TAB PO SCH (08:32)
[2020-03-23] MEDS: Senokot S 8.6-50 MG TAB PO SCH (08:33)
[2020-03-23] MEDS: Escitalopram Oxalate 20 mg Tablet PO SCH (08:33)
[2020-03-23] MEDS: Losartan/Hydrochlorothiazide 100 mg/25 mg Tablet PO SCH (08:34)
[2020-03-23] MEDS: Rosuvastatin 10 MG TAB PO SCH (08:34)
[2020-03-23] MEDS: traMADol HCl 50 MG TAB PO PRN ×2 (08:38→14:40)
[2020-03-23 11:27] VITALS: BP 144/65; TEMP 98.6
--- NOTE | 2020-03-23 14:39 | PDOC.HOSPP ---
- Subjective Encounter Date: 03/23/20 Encounter Time: 10:00 Subjective: Patient seen and examined for medical management. Denies any chest pain or shortness of breath. No nausea or vomiting. - Objective Vital Signs & Weight: Vital Signs (12 hours) Temp Pulse Resp BP Pulse Ox 03/23/20 11:22 98.6 F 70 16 144/65 H 92 L 03/23/20 08:00 94 L 03/23/20 07:35 98.0 F 67 16 124/68 94 L 03/23/20 03:50 98.1 F 68 14 120/60 97 Weight Admit Weight 257 lb 15.04 oz Weight 257 lb 15.053 oz I&O: 03/22/20 03/23/20 03/24/20 06:59 06:59 06:59 Output Total 550 1000 Balance -550 -1000 Result Diagrams: 03/23/20 05:35 Hospitalist ROS - Review of Systems Respiratory: denies: cough, dry, shortness of breath, hemoptysis, SOB with excertion, pleuritic pain, sputum, wheezing, other Cardiovascular: denies: chest pain, palpitations, orthopnea, paroxysmal noc. dyspnea, edema, light headedness, other - Medication Medications: Active Medications Generic Name Dose Route Start Last Admin Trade Name Freq PRN Reason Stop Dose Admin Acetaminophen 650 mg 03/21/20 07:22 03/22/20 22:31 Acetaminophen 325 Mg Tab PO 650 mg Q4H PRN Administration Headache/Fever or Pain Alprazolam 0.25 mg 03/21/20 07:29 03/22/20 20:52 Alprazolam 0.25 Mg Tab PO 0.25 mg DAILY PRN Administration Anxiety Aspirin 81 mg 03/21/20 09:00 03/23/20 08:32 Aspirin 81 Mg Enteric Coated Tablet PO 81 mg BID VINAY Administration Cyanocobalamin 500 mcg 03/21/20 09:00 03/23/20 08:32 Cyanocobalamin (Vitamin B-12) 1,000 Mcg Tab PO 500 mcg DAILY VINAY Administration Escitalopram Oxalate 20 mg 03/21/20 09:00 03/23/20 08:33 Escitalopram Oxalate 20 Mg Tablet PO 20 mg DAILY VINAY Administration Ferrous Gluconate 324 mg 03/21/20 09:00 03/23/20 08:32 Ferrous Gluconate 324 Mg Tab PO 324 mg BID VINAY Administration HCTZ/Losartan Potassium 1 tab 03/21/20 09:00 03/23/20 08:34 Losartan/Hydrochlorothiazide 100 Mg/25 Mg Tablet PO 1 tab DAILY VINAY Administration Sodium Chloride 1,000 mls @ 100 mls/hr 03/21/20 07:30 03/23/20 08:45 Normal Saline 0.9% IV Not Given .Q10H VINAY Ropivacaine 250 ml/ Device 250 mls @ 10 mls/hr 03/21/20 07:45 03/22/20 10:27 NERVE BLCK 03/24/20 07:44 250 mls INF VINAY Administration Iron/Minerals/Multivitamins 1 tab 03/21/20 09:00 03/23/20 08:32 Multivitamin W/ Minerals 1 Tab PO 1 tab DAILY VINAY Administration Loratadine 10 mg 03/21/20 21:00 03/22/20 20:52 Loratadine 10 Mg Tab PO Not Given HS VINAY Pantoprazole Sodium 40 mg 03/21/20 09:00 03/23/20 08:33 Pantoprazole 40 Mg Tab PO 40 mg DAILY VINAY Administration Rosuvastatin Calcium 10 mg 03/21/20 09:00 03/23/20 08:34 Rosuvastatin 10 Mg Tab PO 10 mg DAILY VINAY Administration Senna/Docusate Sodium 2 tab 03/22/20 21:00 03/23/20 08:33 Senokot S 8.6-50 Mg Tab PO Not Given BID VINAY Tramadol HCl 100 mg 03/21/20 07:45 03/23/20 08:38 Tramadol Hcl 50 Mg Tab PO 100 mg Q6H PRN Administration Moderate Pain 4-6 - Exam General Appearance: NAD Neck: supple, no JVD Respiratory: normal chest expansion Extremities: no edema Neurological: no new deficit Psychiatric: normal affect, A&O x 3 Hosp A/P - Plan DVT proph w/SCDs Hypertension Obstructive sleep apnea on CPAP Anxiety Vitamin B12 deficiency GERD Hyperlipidemia History of rheumatoid arthritis CKD stage III Seasonal allergies Plan: Continue supportive care. Continue physical therapy. Continue current dose of losartan/hydrochlorothiazide. Continue statins, Lexapro and other medications as above. Continue home CPAP.
== END 2020-03-23 15:03 | disposition home or self-care (01) | DRG 470 ==
LOC: SJJU 03-21 05:30 → SURG A 03-21 11:14
PROVIDERS: ADMIT Orthopaedic Surgery; ATTEND Orthopaedic Surgery
PROC: 0SRD0J9 Replacement of Left Knee Joint with Synthetic Substitute, Cemented, Open Approach (ICD-10-PCS; principal; 2020-03-21)
DX: M17.12 Unilateral primary osteoarthritis, left knee (principal); E78.5 Hyperlipidemia, unspecified; N18.30 Chronic kidney disease, stage 3 unspecified; K21.9 Gastro-esophageal reflux disease without esophagitis; F41.9 Anxiety disorder, unspecified; G47.33 Obstructive sleep apnea (adult) (pediatric); J30.2 Other seasonal allergic rhinitis; M06.9 Rheumatoid arthritis, unspecified; E53.8 Deficiency of other specified B group vitamins; I10 Essential (primary) hypertension; Z88.6 Allergy status to analgesic agent; I12.9 Hypertensive chronic kidney disease with stage 1 through stage 4 chronic kidney disease, or unspecified chronic kidney disease; F32.9 Major depressive disorder, single episode, unspecified; Z90.710 Acquired absence of both cervix and uterus; Z98.51 Tubal ligation status; Z90.49 Acquired absence of other specified parts of digestive tract
CPT/HCPCS: 36415; 85027; C1713; C1776; J0690; J1100; J1885; J2250; J2405; J2704; J2795; J3010; J3370; J3490; J7030; S0020